=== PATIENT | female | born 1945 | race Caucasian/White ===

== ENCOUNTER 2017-09-12 07:35 | Day surgery (SDC) | payer OTHER, BC ==
[~2017-09-12] VITALS: Ht 158.8 cm; Wt 70.3 kg
[~2017-09-12 07:35] MED LIST: ASPIR-LOW81 MG PO; FENOFIBRATE145 M1 PO; LEVOTHYROXINE125 MCG PO; LORAZEPAM0.5 MG PO; LOSARTAN POTASS50 MG PO; METANX CAPSULE1 EACH PO; METOPROLOL SUCC50 MG PO; NOVOLOG 10100 UNITS/ SC; SIMVASTATIN20 MG PO; VITAMIN D2000 UNIT PO; ZANTAC150 MG PO
== END 2017-09-12 14:57 | disposition home or self-care (01) ==
LOC: CATH 07:35
PROVIDERS: Internal Medicine Cardiovascular Disease
DX: I25.10 Atherosclerotic heart disease of native coronary artery without angina pectoris (principal); E78.5 Hyperlipidemia, unspecified; I05.9 Rheumatic mitral valve disease, unspecified; E11.22 Type 2 diabetes mellitus with diabetic chronic kidney disease; N18.9 Chronic kidney disease, unspecified; Z79.4 Long term (current) use of insulin; Z88.0 Allergy status to penicillin; Z88.1 Allergy status to other antibiotic agents
CPT/HCPCS: 82948; 93005; C1769; C1887; J1644; J2250; J3010; J7040